=== PATIENT | male | born 1980 | race Caucasian/White ===

== ENCOUNTER 2020-03-11 14:55 | Emergency (ER) | payer OTHER, SELFPAY ==
[2019-09-16 16:08] VITALS: BMI 35.2
[2020-03-11 14:56] VITALS: BP 156/102; PULSE 82; RESP 20; TEMP 36.4; O2SAT 98; BMI 36.6
--- NOTE | 2020-03-11 15:00 | ED.RN ---
pt continues to have right sided flank pain at dc- 1 norco given with prescription. support provided. called for ride.
--- NOTE | 2020-03-11 15:07 | ED.DCSUM_ITS ---
History of Present Illness Chief Complaint: Eye Problem Informant: Patient Onset: Today Context: Sudden Onset Timing: Continuous Current Severity: Moderate Maximum Severity: Moderate Narrative: Patient is an otherwise healthy 39-year-old male who presents to the emergency department with foreign body sensation in his right eye. Patient states he was working with pipe wrenches. He states he went to put them in his toolbox, and felt like he got something into his right eye. Since then, has had pain. She denies blurry vision or change in vision. He does wear glasses, but no contacts. His last tetanus was 3 years ago. He does work here in the hospital and presented immediately to the emergency department. Prior similar symptoms: No Recent Illness/Hospitalization: No Past Medical History - Allergies and Home Meds Allergies/Adverse Reactions: Allergies No Known Allergies Allergy (Unverified 03/11/20 15:02) Primary Care Physician: Kirti Mead MD [STAFF PHYSICIAN] - 1-2 Days if not improving Prior records reviewed: Yes Past Medical History: None Surgical History: noncontributory Smoking Status: Former smoker Review of Systems General: Denies: Chills, Fever, Sweats Eyes: Denies: Visual changes - bilaterally, Diplopia ENT: Denies: Rhinorrhea, Sore throat Cardiovascular: Denies: Chest pain, Palpitations Respiratory: Denies: Dyspnea, Cough, Dyspnea on exertion Gastrointestinal: Denies: Abdominal pain, Nausea, Vomiting, Diarrhea, Melena, Hematochezia Genitourinary: Denies: Dysuria, Hematuria, Frequency Musculoskeletal: Denies: Back pain, Extremity Pain Skin: Denies: Rash, Wounds Neurological: Denies: Headache, Weakness, Numbness Physical Exam Vital Signs/Narrative: Vital Signs Temp Pulse Resp BP Pulse Ox 03/11/20 14:56 97.5 F L 82 20 H 156/102 H 98 Inital Vital Signs reviewed: Yes General: Well nourished, Well developed, No Acute Distress Head: Normocephalic, Atraumatic Eyes: Perrl, EOMI, - - Mild conjunctivoerythema of the right eye. No definitive foreign body seen. ENT: Moist mucous membranes, No rhinorrhea Neck: Supple, Nontender Cardiovascular: Regular rate, Regular rhythm, No murmurs Respiratory: No distress, CTA bilaterally, Chest nontender Abdomen: Soft, Nontender, Nondistended, Normal bowel sounds Back: Nontender, Normal Inspection Extremities: Nontender, No edema Skin: Normal color, No rash Neurological: Alert, Oriented x3, Cranial nerves II-XII grossly intact, Normal Strength, Normal Sensation Psychological: Normal affect, Normal Mood Diagnostic/Tx/Re-eval - Medical Decision Making Tetracaine was instilled in the patient's right eye and his pain was immediately relieved. Unfortunately, fluorescein has been on back order for some time. I was unable to instill any in the eye. I did however take care with the slit- lamp and adjusted light and angles multiple times. The patient does have a 3 mm abrasion at approximately the 4 o'clock position overlying the iris. There is no evidence of retained foreign body. His vision is normal with his glasses on. I am going to place him on erythromycin ointment give him short-term ophthalmology follow-up. He is comfortable with this plan of care. Impression 1. Corneal abrasion right eye ED Disposition - Plan for ED Patient: Instructions: ED Corneal Abrasion Prescriptions: Erythromycin Ophthalmic 1 applic RIGHT EYE TID #1 tube Prescription Printed Referrals: Kirti Mead MD [STAFF PHYSICIAN] - 1-2 Days if not improving
[2020-03-11] MEDS: Tetracaine 0.5% Ophthalmic Bottle 1 DRP RIGHT EYE (15:12)
[2020-03-11] MEDS: Erythromycin Base 1 OPTH.TUBE 1 APPLIC RIGHT EYE (15:30)
== END 2020-03-11 15:35 | disposition home or self-care (01) ==
LOC: ED 15:30
PROVIDERS: Emergency Provider Emergency Medicine; PCP Family Medicine
DX: S05.01XA Injury of conjunctiva and corneal abrasion without foreign body, right eye, initial encounter (principal); X58.XXXA Exposure to other specified factors, initial encounter; Y93.9 Activity, unspecified; Y92.9 Unspecified place or not applicable; Z87.891 Personal history of nicotine dependence
CPT/HCPCS: 99282

== ENCOUNTER → 2023-01-01 | Outpatient (CLI) | payer OTHER, SELFPAY ==
[2023-01-01 08:48] LABS: Anion Gap 4 (5-15); BUN 16 mg/dL (7-18); BUN/Creat Ratio 16.6 RATIO (10-20); Calcium,Total 8.7 mg/dL (8.5-10.1); Chloride 106 mmol/L (98-107); Cholesterol 150 mg/dL (200); Creatinine, Serum 0.96 mg/dL (0.70-1.30); EST Glomerular Filtration Rate 92 mL/min (>60); Est Glom Filt Rate - Afr Amer 111 mL/min (>60); Glucose 97 mg/dL (74-106); High Density Lipoprotein 37 mg/dL; Potassium 3.9 mmol/L (3.5-5.1); Sodium Level 137 mmol/L (136-145); Triglycerides 57 mg/dL; Very Low Density Lipoprotein 11 mg/dL (5-40)
== END | disposition home or self-care (01) ==
LOC: LAB 07:38
PROVIDERS: PCP Family Medicine; Referring Provider Family Medicine; Visit Provider Family Medicine
DX: Z00.00 Encounter for general adult medical examination without abnormal findings (principal)
CPT/HCPCS: 36415; 80048; 80061